=== PATIENT | female | born 1970 | race Caucasian/White ===

== ENCOUNTER 2019-08-04 07:32 | Inpatient (IN) | payer OTHER ==
[~2019-08-04] VITALS: Ht 170.2 cm; Wt 63.5 kg
--- NOTE | 2019-08-04 07:32 | NUR ---
pt placed in bed 10 by ems
[2019-08-04 07:35] VITALS: BP 129/87
[2019-08-04] MEDS ORDERED: NACL 0.9% 500 ML IV SCH (07:35)
--- NOTE | 2019-08-04 07:41 | NUR ---
ekg being performed at bedside
--- NOTE | 2019-08-04 07:44 | NUR ---
lab at bedside
--- NOTE | 2019-08-04 08:03 | NUR ---
PT TAKEN TO CT VIA [facility]
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
[2019-08-04 08:22] LABS: APPEARANCE,URINE CLEAR (CLEAR); BILIRUBIN,URINE NEGATIVE (NEGATIVE); BLOOD, URINE NEGATIVE (NEGATIVE); COLOR,URINE YELLOW (YELLOW); LEUKOCYTE ESTERASE ,URINE NEGATIVE (NEGATIVE); NITRITE, URINE NEGATIVE (NEGATIVE); UGLUCOSE NEGATIVE (NEGATIVE)
[2019-08-04 08:30] LABS: BASOPHILS % (AUTO) 0.2 % (0.0-2.0); EOSINOPHILS % (AUTO) 0.1 % (0.0-4.0); HEMATOCRIT 43.6 % (36-48); HEMOGLOBIN 14.3 g/dL (12.0-16.0); LYMPHOCYTES # (AUTO) 1.2 K/uL (2.5-16.5); LYMPHOCYTES % (AUTO) 5.7 % (20.5-51.1); MEAN CORPUSCULAR HEMOGLOBIN 31 pg (27-31); MEAN CORPUSCULAR HGB CONC 33 g/dL (33-37); MEAN CORPUSCULAR VOLUME 95.1 fL (80-94); MONOCYTES # (AUTO) 0.8 K/uL (0.8-1.0); MONOCYTES % (AUTO) 3.5 % (1.7-9.3); NEUTROPHILS # (AUTO) 19.5 K/uL (1.8-7.7); NEUTROPHILS % (AUTO) 90.5 % (42.2-75.2); PLATELET COUNT (AUTO) 344 K/uL (140-450); RED BLOOD CELL COUNT(AUTO) 4.58 MIL/uL (4.20-5.40); RED CELL DISTRIBUTION WIDTH 13.4 % (11.6-13.7)
[2019-08-04 08:31] LABS: PROTHROMBIN TIME 9.4 secs (10.8-13.4)
[2019-08-04 08:42] LABS: WHITE BLOOD COUNT (AUTO) 21.6 K/uL (4.8-10.8)
[2019-08-04 08:43] LABS: ANION GAP 19.1 (8-16); CARBON DIOXIDE 25.3 mmol/L (21-32); CHLORIDE 106 mmol/L (98-107); GLUCOSE 81 mg/dL (74-106); POTASSIUM 3.4 mmol/L (3.5-5.1); SODIUM SERUM 147 mmol/L (136-145); UREA NITROGEN, BLOOD 25 mg/dL (7-18)
[2019-08-04 08:44] LABS: ACETAMINOPHEN < 0.5 ug/ml (10-30); ALBUMIN 4.1 g/dL (3.4-5.0); ASPARTATE AMINOTRANSFERASE 31 U/L (15-37); CREATININE 1.8 mg/dL (0.6-1.3); GFR ARICAN-AMERICAN 38 mL/min (>90); TOTAL BILIRUBIN 0.5 mg/dL (0.0-1.0)
[2019-08-04 08:55] LABS: SALICYLATE < 2.8 mg/dL (2.8-20.0)
[2019-08-04 08:59] LABS: BARBITURATE, URINE NEGATIVE ng/ml (NEG <=200); BENZODIAZEPINE, URINE NEGATIVE ng/mL (NEG <=200); CANNABINOID, URINE NEGATIVE ng/mL (NEG <=50); COCAINE, URINE POSITIVE ng/mL (NEG <=300); OPIATE, URINE NEGATIVE ng/mL (NEG <=2000); PHENCYCLIDINE SCREEN,URINE NEGATIVE ng/mL (NEG <=25)
[2019-08-04] MEDS ORDERED: PIPERACILLIN/TAZOBACTAM 3.375 GM in DEXTROSE 5% 50 ML IV ONE (09:10)
[2019-08-04] MEDS ORDERED: NACL 0.9% 1,500 ML IV ONE (09:10)
[2019-08-04] MEDS ORDERED: PIPERACILLIN/TAZOBACTAM 3.375 GM VIAL IV ONE (09:13)
--- NOTE | 2019-08-04 10:33 | NUR ---
ERMD AT BEDSIDE
[2019-08-04] MEDS ORDERED: ONDANSETRON 4 MG/2 ML VIAL IM/IVP PRN (10:45)
[2019-08-04] MEDS ORDERED: HYDROcodone/APAP 7.5/325 MG 1 TAB PO PRN (10:45)
[2019-08-04] MEDS ORDERED: DOCUSATE SODIUM 100 MG GELCAP PO PRN (10:45)
[2019-08-04 11:28] LABS: CHOL/HDL RATIO 1.8 (1-4.5); FREE T4 (FREE THYROXINE) 1.13 ng/dL (0.76-1.46); MAGNESIUM 2.4 mg/dL (1.8-2.4); PHOSPHORUS 5.3 mg/dL (2.5-4.9); THYROID STIMULATING HORMONE 2.07 uIU/mL (0.34-3.74)
[2019-08-04 11:50] VITALS: BP 140/95
--- NOTE | 2019-08-04 11:50 | NUR ---
Patient will be admitted to care of [facility]. Admited to 124B TELEMETRY. Will go to room 124B. Belongings list completed. Report to ARSLAN GUZMAN.
--- NOTE | 2019-08-04 11:50 | NUR ---
RECEIVED BEDSIDE REPORT FROM ED NURSE. PT RESTING IN BED. ABLE TO MAKE NEEDS KNOWN. RESPIRATIONS EVEN AND UNLABORED WITH NO SOB OR RESPIRATORY DISTRESS. SKIN WARM AND DRY TO TOUCH. IV SITE IN RAC 20G IS CLEAN, DRY, AND INTACT. PT CHANGED INTO YELLOW GOWN AND SUCKS. WRIST BAND APPLIED AND SIGN POSTED. MRSA SWAB COLLECTED AND SENT. CALLED [facility] TO GATHER INFORMATION ABOUT PT. PT SIGNED CONSENT AND PLACED IN CHART. CALLED THE DIRECT NUMBER AT [phone] AND THE PROTOHISTORIAN SAID THAT [facility] IS CLOSED DURING THE WEEKEND SO THEY ARE NOT ABLE TO GIVE ME THEIR FAX NUMBER. CHARGE NURSE MADE AWARE. WILL ENDORSE TO NIGHTSHIFT. VITAL SIGNS: 97.7 TEMP, 94 HR, 140/95 BP, 99% RA, AND 18 RR. SAFETY MEASURES IN PLACE. WILL CONTINUE TO MONITOR. Addendum: 08/04/19 at 1714 by Ernestina Jackson RN ALSO TRIED CALLING [facility] AT [phone]
[2019-08-04] MEDS ORDERED: POTASSIUM CHLORIDE 10 MEQ TABER PO SCH (12:00)
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
[2019-08-04] MEDS: NACL 0.9% 1,000 ML IV SCH ×2 (13:14→21:54)
--- NOTE | 2019-08-04 13:15 | NUR ---
ADMINISTERED SCHED MED PRESCRIBED PER MD ORDER. PT TOLERATED WELL. MEDICATION EDUCATION PERFORMED. PT VERBALIZED UNDERSTANDING. SAFETY MEASURES IN PLACE. WILL CONTINUE TO MONITOR.
--- NOTE | 2019-08-04 14:30 | NUR ---
PT TAKEN TO GET CHEST US WITH CONTRAST. INFORMED CONSENT IS IN THE CHART.
--- NOTE | 2019-08-04 15:15 | NUR ---
PT RETURNED FROM PROCEDURE. SAFETY MEASURES IN PLACE. WILL CONTINUE TO MONITOR.
[2019-08-04 16:00] VITALS: BP 126/69
[2019-08-04] MEDS: CALCIUM ACETATE 667 MG TAB PO SCH (17:05)
--- NOTE | 2019-08-04 17:05 | NUR ---
ADMINISTERED SCHED MED PRESCRIBED PER MD ORDER. PT TOLERATED WELL. MEDICATION EDUCATION PERFORMED. PT VERBALIZED UNDERSTANDING. SAFETY MEASURES IN PLACE. WILL CONTINUE TO MONITOR.
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
--- NOTE | 2019-08-04 19:10 | NUR ---
ENDORSED AT BEDSIDE TO NIGHTSHIFT NURSE. PT RESTING IN BED. ABLE TO MAKE NEEDS KNOWN. RESPIRATIONS EVEN AND UNLABORED WITH NO SOB OR RESPIRATORY DISTRESS. SKIN WARM AND DRY TO TOUCH. SAFETY MEASURES IN PLACE. PT IS STABLE.
--- NOTE | 2019-08-04 19:11 | NUR ---
RECEIVED BEDSIDE REPORT FROM DAY SHIFT NURSE ARSLAN RN, PT STABLE, NO DISTRESS NOTED, IV TO R AC 20G PATENT INTACT, INFUSING WELL, PT ON ROOM AIR, NO SOB NOTED, NO C/O PAIN AT THIS MOMENT, INITIAL ASSESSMENT DONE, ALL SAFETY PRECAUTION MET, CALL LIGHT WITHIN REACH, WILL CONTINUE TO MONITOR.
[2019-08-04 20:00] VITALS: BP 126/58
[2019-08-04] MEDS: LACTULOSE 20 GM/30 ML UDC PO SCH (20:46)
--- NOTE | 2019-08-04 20:46 | NUR ---
DUE MEDICATION ADMINISTERED, PT TOLERATED WELL, NO DISTRESS NOTED, CALL LIGHT WITHIN REACH, WILL CONTINUE TO MONITOR.
--- NOTE | 2019-08-04 22:40 | NUR ---
PT WALKING AROUND ROOM, NO DISTRESS NOTED, CALL LIGHT WITHIN REACH, WILL CONTINUE TO MONITOR.
[2019-08-05] VITALS: BP 127/78
--- NOTE | 2019-08-05 00:14 | NUR ---
PT SLEEPING, NO DISTRESS NOTED, CALL LIGHT WITHIN REACH, WILL CONTINUE TO MONITOR.
[2019-08-05] MEDS: NACL 0.9% 1,000 ML IV SCH ×2 (03:14→11:48)
--- NOTE | 2019-08-05 03:58 | NUR ---
PT SLEEPING, CALL LIGHT WITHIN REACH, WILL CONTINUE TO MONITOR.
[2019-08-05 04:00] VITALS: BP 107/68
[2019-08-05 06:07] LABS: T4 (THYROXINE) 7.1 ug/dL (4.5-12.0)
[2019-08-05 06:25] LABS: BASOPHILS % (AUTO) 0.6 % (0.0-2.0); EOSINOPHILS # (AUTO) 0.1 K/uL (0-0.4); EOSINOPHILS % (AUTO) 1.6 % (0.0-4.0); HEMATOCRIT 34.6 % (36-48); HEMOGLOBIN 11.6 g/dL (12.0-16.0); LYMPHOCYTES # (AUTO) 2.4 K/uL (2.5-16.5); LYMPHOCYTES % (AUTO) 30.5 % (20.5-51.1); MEAN CORPUSCULAR HEMOGLOBIN 32 pg (27-31); MEAN CORPUSCULAR HGB CONC 33 g/dL (33-37); MEAN CORPUSCULAR VOLUME 95.4 fL (80-94); MONOCYTES # (AUTO) 0.4 K/uL (0.8-1.0); MONOCYTES % (AUTO) 5.4 % (1.7-9.3); NEUTROPHILS # (AUTO) 4.9 K/uL (1.8-7.7); NEUTROPHILS % (AUTO) 61.9 % (42.2-75.2); PLATELET COUNT (AUTO) 244 K/uL (140-450); RED BLOOD CELL COUNT(AUTO) 3.62 MIL/uL (4.20-5.40); RED CELL DISTRIBUTION WIDTH 13.4 % (11.6-13.7); WHITE BLOOD COUNT (AUTO) 7.9 K/uL (4.8-10.8)
[2019-08-05 06:54] LABS: MAGNESIUM 1.7 mg/dL (1.8-2.4)
--- NOTE | 2019-08-05 06:59 | NUR ---
PT RESTING, NO DISTRESS NOTED, COOPERATIVE, CALL LIGHT WITHIN REACH, WILL CONTINUE TO MONITOR.
--- NOTE | 2019-08-05 07:09 | NUR ---
ENDORSED PT TO DAY SHIFT NURSE, PT STABLE, NO DISTRESS NOTED, CALL LIGHT WITHIN REACH, WILL CONTINUE TO MONITOR.
--- NOTE | 2019-08-05 07:14 | NUR ---
RECEIVED BEDSIDE REPORT FROM NIGHTSHIFT NURSE. PT RESTING IN BED UPON ARRIVAL. ABLE TO MAKE NEEDS KNOWN. RESPIRATIONS EVEN AND UNLABORED WITH NO SOB OR RESPIRATORY DISTRESS, SKIN WARM AND DRY TO TOUCH, IV SITE IN RIGHT AC 20G IS CLEAN, DRY, AND INTACT. SAFETY MEASURES IN PLACE. WILL CONTINUE TO MONITOR.
[2019-08-05 07:27] LABS: CARBON DIOXIDE 23.8 mmol/L (21-32); CREATININE 0.7 mg/dL (0.6-1.3); POTASSIUM 3.8 mmol/L (3.5-5.1)
[2019-08-05 08:00] VITALS: BP 124/68
[2019-08-05] MEDS: CALCIUM ACETATE 667 MG TAB PO SCH (08:00)
--- NOTE | 2019-08-05 08:20 | NUR ---
PATIENT HAS BEEN SCREENED AND CATEGORIZED LOW NUTRITION RISK. PATIENT WILL BE SEEN WITHIN 7 DAYS OF ADMISSION. 08/10/[address]
[2019-08-05] MEDS: LACTULOSE 20 GM/30 ML UDC PO SCH (09:00)
[2019-08-05] MEDS ORDERED: PANTOPRAZOLE 40 MG TABEC PO SCH (09:00)
--- NOTE | 2019-08-05 09:05 | NUR ---
PT IS AWARE OF DISCHARGE. PT REQUESTED TO LEAVE BEFORE NOON. SAFETY MEASURES IN PLACE. WILL CONTINUE TO MONITOR.
[2019-08-05 09:52] VITALS: BP 124/68
--- NOTE | 2019-08-05 10:30 | NUR ---
PT REQUESTED TO TAKE A SHOWER PRIOR TO LEAVING. PT ALSO SAID THAT HER CLOTHES ARE SOILED AND SHE NEEDS NEW ONES FOR WHEN SHE GETS DISCHARGED. PT RECEIVED CLOTHES FROM SECURITY. SAFETY MEASURES IN PLACE. WILL CONTINUE TO MONITOR.
--- NOTE | 2019-08-05 11:15 | NUR ---
PT IS STILL GETTING READY. PT STATES THAT SHE WANTS TO GO HOME AFTER LUNCH. SAFETY MEASURES IN PLACE. WILL CONTINUE TO MONITOR.
[2019-08-05 12:00] VITALS: BP 120/70
--- NOTE | 2019-08-05 13:15 | NUR ---
WENT OVER DISCHARGE INSTRUCTIONS WITH PT. PT SIGNED APPROPRIATE DOCUMENTS. INSTRUCTED PT TO VISIT ED FOR ANY SIGNS OF DISTRESS. PT VERBALIZED UNDERSTANDING. PT GIVEN HOMELESS MEAL, [employer] PACKET, AND A BUS PASS. TELE MONITOR REMOVED. INTACT IV CANNULA REMOVED. PT RECIEVED FLU VACCINE 04/2019 AND REFUSED PNA VACCINE. PT CHANGED INTO OWN CLOTHES AND GATHERED HER BELONGINGS. PT WHEELED OUT AND IS STABLE.
--- NOTE | 2019-08-05 14:04 | NUR ---
Manager Case Note: SW attempted to conduct assessment with patient but patient was discharged.
== END 2019-08-05 13:20 | disposition home or self-care (01) | DRG 469 ==
LOC: MED 07:32 → MTU 10:42
PROVIDERS: ADMIT General Practice; ATTEND General Practice
DX: N17.0 Acute kidney failure with tubular necrosis (principal); G92 Toxic encephalopathy; E87.0 Hyperosmolality and hypernatremia; E87.2 Acidosis; R65.10 Systemic inflammatory response syndrome (SIRS) of non-infectious origin without acute organ dysfunction; E83.39 Other disorders of phosphorus metabolism; E86.0 Dehydration; E87.6 Hypokalemia; Z88.8 Allergy status to other drugs, medicaments and biological substances; J45.909 Unspecified asthma, uncomplicated; F19.959 Other psychoactive substance use, unspecified with psychoactive substance-induced psychotic disorder, unspecified; Z59.0 Homelessness; Z87.891 Personal history of nicotine dependence
CPT/HCPCS: 36415; 70450; 71045; 71260; 80048; 80053; 80305; 81003; 81025; 82140; 82150; 83036; 83605; 83690; 83735; 83880; 84100; 84436; 84439; 84443; 84479; 84484; 85025; 85610; 85730; 87040; 87081; 87086; 93005; 96361; 99291; C1758; G0480; G0482; J0696; J2543; J7030; J7060; Q0092; Q9967

== ENCOUNTER 2020-03-23 01:59 | Emergency (ER) | payer OTHER ==
[~2020-03-23] VITALS: Ht 160 cm; Wt 56.7 kg
[2020-03-23 01:59] VITALS: BP 110/80
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
--- NOTE | 2020-03-23 03:10 | NUR ---
ERMD AT BEDSIDE EVALUATING PT.
--- NOTE | 2020-03-23 03:35 | NUR ---
pt transfer to via gurney.
--- NOTE | 2020-03-23 03:49 | NUR ---
pt returned back from via [facility].
--- NOTE | 2020-03-23 04:29 | NUR ---
PT HAD C/O 6/10 HEADACHE, THROBBING, NON RADIATING. ERMD MADE AWARE AND GAVE NEW ORDER FOR MOTRIN 600MG PO.
[2020-03-23] MEDS ORDERED: IBUPROFEN 600 MG TAB PO STA (04:32)
[2020-03-23] MEDS ORDERED: IBUPROFEN 600 MG TAB ONE (04:33)
--- NOTE | 2020-03-23 04:53 | NUR ---
Sayra jensen in [facility] - 03/23/20 at 0456 by [facility] TELEPYSCH SET UP AT BEDSIDE.
--- NOTE | 2020-03-23 04:53 | NUR ---
TELEPSYCH SET UP AT BEDSIDE.
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
[2020-03-23 05:26] VITALS: BP 110/80
--- NOTE | 2020-03-23 05:26 | NUR ---
Patient discharged with v/s stable. Written and verbal after care instructions given and explained. Patient verbalized understanding. Ambulatory with steady gait. All questions addressed prior to discharge. Advised to follow up with PMD.
== END 2020-03-23 05:26 | disposition home or self-care (01) ==
LOC: MED 01:59
DX: M54.5 Low back pain (principal); F41.9 Anxiety disorder, unspecified
CPT/HCPCS: 72110; 81002; 81025; 99283

== ENCOUNTER 2020-03-24 02:05 | Emergency (ER) | payer OTHER ==
[~2020-03-24] VITALS: Ht 162.6 cm; Wt 57.6 kg
[2020-03-24 02:11] VITALS: BP 122/76
--- NOTE | 2020-03-24 02:16 | NUR ---
To ED bed 03.
--- NOTE | 2020-03-24 02:42 | NUR ---
MD GANDARA AT BEDSIDE
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
--- NOTE | 2020-03-24 02:47 | NUR ---
PT HAS HX OF BIPOLAR BUT DOES NOT TAKE MEDS, STATING THEY CAUSE HER TO HAVE DSYTONIA. WHEN ASKED IF SHE IS HAVING S/I SHE DENIES THAT. STATES SHE HEARS VOICES ON AND OFF AND THE VOICES TELL HER TO BECAME A [employer] [place], NOT TO COMMIT ADULTERY, AND NOT TO HAVE SEX BEFORE MARRIAGE. VOICES SPEAK TO HER ABOUT CHURCH ISSUES NOTHING TELLING HER TO EVER HURT HERSELF OR OTHERS.
[2020-03-24] MEDS ORDERED: diazePAM 5 MG TAB PO ONE (02:50)
--- NOTE | 2020-03-24 03:05 | NUR ---
12 LEADEGK DONE AT BEDSIDE NSR 61, SHOWN TO MD GANDARA
--- NOTE | 2020-03-24 03:49 | NUR ---
pt up and ambulated to restroom
[2020-03-24 04:05] VITALS: BP 125/78
--- NOTE | 2020-03-24 04:06 | NUR ---
PT REFUSED TO LEAVE AND HAD TO BE ESCORTED OUT BY SECURITY.
== END 2020-03-24 04:06 | disposition home or self-care (01) ==
LOC: MED 02:05
DX: F41.9 Anxiety disorder, unspecified (principal); M54.40 Lumbago with sciatica, unspecified side; F17.210 Nicotine dependence, cigarettes, uncomplicated; J45.909 Unspecified asthma, uncomplicated; Z88.8 Allergy status to other drugs, medicaments and biological substances; Z59.0 Homelessness
CPT/HCPCS: 99283

== ENCOUNTER 2020-03-24 05:35 | Emergency (ER) | payer OTHER ==
[~2020-03-24] VITALS: Ht 162.6 cm; Wt 57.6 kg
--- NOTE | 2020-03-24 05:45 | NUR ---
triaged and waiting in lobby
[2020-03-24 05:47] VITALS: BP 122/76
[2020-03-24 05:55] VITALS: BP 122/76
--- NOTE | 2020-03-24 06:23 | NUR ---
50 year old female coming in via ambulance run for c/o midsternal chest pain that is radiating to back. appears to be fidgeting and repeats words. pt is a/o x 4. EKG showed NSR. no s/sx of obvious heart conditions. MSE by Dr. Gil. denies headache/blurry vision. denies sob/cough. denies n/v/d.
--- NOTE | 2020-03-24 06:51 | NUR ---
pt d/c without signing d/c paperwork. Dr. Gil made aware.
== END 2020-03-24 06:51 | disposition home or self-care (01) ==
LOC: MED 05:35
DX: F41.9 Anxiety disorder, unspecified (principal); R07.9 Chest pain, unspecified; J45.909 Unspecified asthma, uncomplicated; Z59.0 Homelessness; Z88.8 Allergy status to other drugs, medicaments and biological substances; Z76.5 Malingerer [conscious simulation]
CPT/HCPCS: 99283